=== PATIENT | female | born 1945 | race Caucasian/White ===

== ENCOUNTER 2017-10-09 16:48 | Emergency (ER) | payer OTHER ==
[~2017-10-09] VITALS: Ht 160 cm; Wt 66.2 kg
[~2017-10-09 16:48] MED LIST: AMITRIPTYLINE; ASA5UEC; FLEXERIL PO; GLUCOPHAGE500 MG; IBUPROFEN 800800 M1; IMITREX 25 MG T25 MG; LEVOTHROID; LISINOPRIL20 MG; NORCO 5-325 TA1 EACH PO
[2017-10-09] MEDS ORDERED: ZOFRAN ODT4 MG PO (18:37)
[2017-10-09] MEDS ORDERED: VALIUM5 MG PO (18:37)
[2017-10-09] MEDS ORDERED: NORCO 5-325 TA1 EACH PO (18:37)
[2017-10-09 19:26] VITALS: BP 145/70
== END 2017-10-09 19:13 | disposition home or self-care (01) ==
LOC: ER 16:48
DX: S39.011A Strain of muscle, fascia and tendon of abdomen, initial encounter (principal); I10 Essential (primary) hypertension; E78.00 Pure hypercholesterolemia, unspecified; G43.909 Migraine, unspecified, not intractable, without status migrainosus; E07.9 Disorder of thyroid, unspecified; X58.XXXA Exposure to other specified factors, initial encounter; Y93.89 Activity, other specified; Y92.89 Other specified places as the place of occurrence of the external cause; Y99.8 Other external cause status

== ENCOUNTER 2018-01-15 21:00 | Emergency (ER) | payer OTHER ==
[~2018-01-15] VITALS: Ht 160 cm; Wt 63.5 kg
--- NOTE | ~2018-01-15 | EKG ---
[address] [address] ELECTROCARDIOGRAM REPORT Name: PAPITO IBARRA Room #: [facility]#: [id number] Admission: 01/15/18 Attend Phys: Discharge: 01/15/18 Date of : 49 Report #: [id number] THIS REPORT FOR: //name// 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 : 1945 Requested By: Eloise Belcher Order Number: [id number] MD: James Ceron Measurements Intervals [place] Rate: 72 P: 61 [place]: 217 QRS: -17 QRSD: 107 T: 7 QT: 450 QTc: 493 Interpretive Statements Sinus rhythm Borderline prolonged [place] interval Inferior infarct, old Probable anteroseptal infarct, old Compared to ECG 09/22/2010 06:38:45 Myocardial infarct finding now present Sinus tachycardia no longer present T-wave abnormality no longer present Electronically Signed On 01-16-2018 21:32:47 CDT by James Ceron [email or web address] <ELECTRONICALLY SIGNED> By: James Ceron MD 01/16/182131 49 49 James Ceron MD /EPI
[~2018-01-15 21:00] MED LIST changes: +VALIUM5 MG PO; +ZOFRAN ODT4 MG PO
[2018-01-15] MEDS ORDERED: NEURONTIN250 MG/5 M PO (21:36)
[2018-01-15 22:16] LABS: URINE BILIRUBIN NEGATIVE (Negative); URINE BLOOD NEGATIVE (Negative); URINE CLARITY CLEAR; URINE COLOR YELLOW; URINE KETONES 3+ (Negative); URINE LEUKOCYTES NEGATIVE (Negative); URINE NITRITE NEGATIVE (Negative); URINE PROTEIN (DIPSTICK) NEGATIVE (Negative); URINE UROBILINOGEN 0.2 E.U./dl (0.2-1.0)
[2018-01-15 22:24] LABS: URINE GLUCOSE-RANDOM* 1+ (Negative)
[2018-01-15 22:37] LABS: HEMATOCRIT 38.7 % (37.0-47.0); HEMOGLOBIN 13.2 gm/dL (12.0-15.0); MCH 32.3 pg (26.0-34.0); MCHC 34.2 g/dL (28.0-37.0); MCV 94.4 fL (80.0-100.0); PLATELET COUNT 241 thou/uL (150-400); WBC 9.7 thou/uL (4.0-11.0)
[2018-01-15 22:46] LABS: ANION GAP 8 mmol/L (7-16); BUN 10 mg/dL (7-18); CALCIUM 9.6 mg/dL (8.5-10.1); CHLORIDE 96 mmol/L (98-107); CO2 24 mmol/L (21-32); CREATININE 0.7 mg/dL (0.6-1.0); GLUCOSE 126 mg/dL (74-106); POTASSIUM 3.4 mmol/L (3.5-5.1); SODIUM 128 mmol/L (136-145)
[2018-01-15 22:54] LABS: ALBUMIN 3.4 g/dL (3.4-5.0); DIRECT BILIRUBIN 0.1 mg/dL (<0.1-0.3); LIPASE 104 U/L (73-393); SGOT 20 U/L (15-37); SGPT 26 U/L (30-65); TOTAL BILIRUBIN 0.4 mg/dL (<0.1-1.0); TOTAL PROTEIN 6.7 g/dL (6.4-8.2); TROPONIN-I < 0.04 ng/mL (<0.06)
[2018-01-15 22:56] LABS: ABSOLUTE NEUTROPHILS 7.5 thou/uL (1.4-8.2)
[2018-01-15 22:57] LABS: ANISOCYTOSIS 1+; POLYCHROMASIA OCCASIONAL
[2018-01-15] MEDS ORDERED: PHENERGAN 25 MG25 M1 PO (23:10)
[2018-01-15] MEDS ORDERED: PROMS25 WY RECTAL (23:10)
[2018-01-15] MEDS ORDERED: ZOFRAN ODT4 MG PO (23:10)
[2018-01-15 23:23] VITALS: BP 124/68
[2018-01-16] MEDS ORDERED: AMBIEN 5 MG TABL5 M1 PO (23:18)
[2018-01-16] MEDS ORDERED: NORVASC2.5 MG PO (23:19)
[2018-01-16] MEDS ORDERED: HYDROCODONE-AP1 EAC6 PO ×2 (23:21→23:22)
[2018-01-16] MEDS ORDERED: NEURONTIN600 MG PO (23:25)
[2018-01-16] MEDS ORDERED: TOPROL XL25 MG PO (23:28)
[2018-01-16] MEDS ORDERED: COMPAZINE10 MG PO (23:29)
[2018-01-16] MEDS ORDERED: NABUMETONE 750750 M1 PO (23:30)
[2018-01-16] MEDS ORDERED: ATORVASTATIN CA40 MG PO (23:30)
[2018-01-16] MEDS ORDERED: HYDROCHLOROTHIA25 M2 PO (23:31)
== END 2018-01-15 23:24 | disposition home or self-care (01) ==
LOC: ER 21:00
PROVIDERS: Emergency Medicine
DX: R19.7 Diarrhea, unspecified (principal); R11.2 Nausea with vomiting, unspecified; I10 Essential (primary) hypertension; E78.00 Pure hypercholesterolemia, unspecified; G43.909 Migraine, unspecified, not intractable, without status migrainosus; E07.9 Disorder of thyroid, unspecified

== ENCOUNTER 2018-01-16 19:06 | Inpatient (IN) | payer OTHER ==
[~2018-01-16] VITALS: Ht 160 cm; Wt 66.6 kg
[~2018-01-16 19:06] MED LIST changes: +NEURONTIN250 MG/5 M PO; +PHENERGAN 25 MG25 M1 PO; +PROMS25 WY RECTAL
[2018-01-16 19:26] VITALS: BP 149/86
[2018-01-16 19:52] LABS: ABSOLUTE NEUTROPHILS 6.8 thou/uL (1.4-8.2); BASOPHILS 0.5 % (0.0-2.0); EOSINOPHILS 0.3 % (0.0-3.0); HEMATOCRIT 38.2 % (37.0-47.0); HEMOGLOBIN 13.3 gm/dL (12.0-15.0); LYMPHOCYTES 18.4 % (24.0-44.0); MCH 32.1 pg (26.0-34.0); MCHC 34.9 g/dL (28.0-37.0); MONOCYTES 7.2 % (1.0-8.0); PLATELET COUNT 260 thou/uL (150-400); POLYS 73.6 % (36.0-66.0); RBC 4.15 mil/uL (4.20-5.00); RDW 16.1 % (10.5-14.5); WBC 9.3 thou/uL (4.0-11.0)
[2018-01-16 19:55] LABS: CALCIUM 9.2 mg/dL (8.5-10.1); CREATININE 0.6 mg/dL (0.6-1.0)
[2018-01-16 19:56] LABS: POTASSIUM 2.6 mmol/L (3.5-5.1)
[2018-01-16 20:01] LABS: ALBUMIN 3.6 g/dL (3.4-5.0); DIRECT BILIRUBIN 0.1 mg/dL (<0.1-0.3); TOTAL BILIRUBIN 0.4 mg/dL (<0.1-1.0); TOTAL PROTEIN 7.1 g/dL (6.4-8.2)
[2018-01-16 22:05] VITALS: BP 168/84
[2018-01-16 22:08] LABS: URINE BILIRUBIN NEGATIVE (Negative); URINE BLOOD NEGATIVE (Negative); URINE CLARITY CLEAR; URINE COLOR YELLOW; URINE GLUCOSE-RANDOM* NEGATIVE (Negative); URINE KETONES 1+ (Negative); URINE LEUKOCYTES TRACE (Negative); URINE NITRITE NEGATIVE (Negative); URINE UROBILINOGEN 0.2 E.U./dl (0.2-1.0)
[2018-01-16 22:30] LABS: SSA (PROTEIN CONFIRMATORY) NEGATIVE (Negative); URINE PROTEIN (DIPSTICK) NEGATIVE (Negative)
[2018-01-16 23:06] VITALS: BP 151/92
[2018-01-16] MEDS ORDERED: AMBIEN 5 MG TABL5 M1 PO (23:18)
[2018-01-16] MEDS ORDERED: NORVASC2.5 MG PO (23:19)
[2018-01-16] MEDS ORDERED: HYDROCODONE-AP1 EAC6 PO ×2 (23:21→23:22)
[2018-01-16] MEDS ORDERED: NEURONTIN600 MG PO (23:25)
[2018-01-16] MEDS ORDERED: TOPROL XL25 MG PO (23:28)
[2018-01-16] MEDS ORDERED: COMPAZINE10 MG PO (23:29)
[2018-01-16] MEDS ORDERED: ATORVASTATIN CA40 MG PO (23:30)
[2018-01-16] MEDS ORDERED: NABUMETONE 750750 M1 PO (23:30)
[2018-01-16] MEDS ORDERED: HYDROCHLOROTHIA25 M2 PO (23:31)
[2018-01-17 04:10] VITALS: BP 118/69
[2018-01-17 05:33] LABS: CALCIUM 8.4 mg/dL (8.5-10.1); CREATININE 0.7 mg/dL (0.6-1.0)
[2018-01-17 05:45] LABS: POTASSIUM 3.8 mmol/L (3.5-5.1)
[2018-01-17 07:29] VITALS: BP 136/76
[2018-01-17 15:48] VITALS: BP 126/82
[2018-01-17 20:17] VITALS: BP 153/101
[2018-01-18 03:53] VITALS: BP 118/69
[2018-01-18 08:34] VITALS: BP 121/72
[2018-01-18 15:48] VITALS: BP 137/82
[2018-01-18 20:17] VITALS: BP 154/86
[2018-01-18 21:14] VITALS: BP 154/94
[2018-01-19 08:04] VITALS: BP 149/82
[2018-01-19 12:30] VITALS: BP 149/82
[2018-01-19] MEDS ORDERED: FLAGYL500 MG PO (14:08)
[2018-01-19] MEDS ORDERED: PROBIOTIC1 EAC2 PO (14:08)
== END 2018-01-19 14:28 | disposition home or self-care (01) | DRG 392 ==
LOC: ER 19:06 → EROBS 21:49 → 4W 21:49 → SICU 01-18 21:18 → ENTRNSPT 01-19 14:17 → SICU 01-19 14:28 → EDTRNSPTSTS 01-19 14:40
PROVIDERS: Emergency Medicine; Nurse Practitioner Acute Care
DX: A08.39 Other viral enteritis (principal); E87.1 Hypo-osmolality and hyponatremia; I10 Essential (primary) hypertension; E78.00 Pure hypercholesterolemia, unspecified; E11.9 Type 2 diabetes mellitus without complications; E03.9 Hypothyroidism, unspecified; G43.909 Migraine, unspecified, not intractable, without status migrainosus; E87.6 Hypokalemia; Z79.84 Long term (current) use of oral hypoglycemic drugs; Z79.899 Other long term (current) drug therapy; Z79.82 Long term (current) use of aspirin; Z98.891 History of uterine scar from previous surgery
CPT/HCPCS: 10045; 15001

== ENCOUNTER 2018-02-02 10:25 | Inpatient (IN) | payer OTHER ==
[~2018-02-02] VITALS: Ht 160 cm; Wt 65.8 kg
--- NOTE | ~2018-02-02 | PATH ---
[facility] [place] [address] [place] [address] PATHOLOGY RPT PROCEDURE Name: RAMONITA IBARRA Zev Room #: 458-P DIS IN M.R.#: [id number] Admission: 02/02/18 Date of : 49 Discharge: 02/04/18 Report #: [id number] Path Case #: [id number] [facility] Accession Number: [id number] . 01 Material submitted: . PART A: DUODENUM BIOPSY PART B: GASTRITIS BIOPSY . 01 Clinical history: . Nausea and vomiting, duodenitis, gastritis. . 02 Diagnosis: A. Duodenum, "duodenum rule out sprue": - Non-specific mild chronic inflammation. - There is no evidence of acute cryptitis, granulomas, adenomatous change, sprue-like changes or malignancy. . B. Gastric biopsy, "gastritis rule out H. pylori": - Mild chronic reactive gastropathy. - There is no evidence of acute cryptitis, granulomas, adenomatous change, or malignancy. - The immunoperoxidase stain for Helicobacter pylori is negative. (MARLYS:; 02/05/18) QRQ/02/05/2018 . 02 Electronically signed: . Oracio Dupree MD, Pathologist NPI- [id number] . 01 Gross description: . A. Received in formalin labeled "Ramonita Ibarra, duodenum biopsy rule out sprue" is a 0.5 x 0.1 x 0.8 0.5 x 0.3 x 0.1 cm aggregate of jean-brown soft tissue. The specimen is submitted in cassette A1. . B. Received in formalin labeled "Ramonita Ibarra, gastritis rule out H. pylori biopsy" is a 0.6 x 0.3 x 0.1 cm aggregate of jean-brown soft tissue. The specimen is submitted in cassette B1. ([facility]; 02/04/2018) SYC/SYC . 02 Pathologist provided ICD-10: K29.80, K31.9 . 02 CPT . 259992, 169973, F75843 Performed at: [address] [facility] [address], [place] [id number] [place] [address] PATHOLOGY RPT PROCEDURE Name: RAMONITA IBARRA Room #: 458-P DIS IN M.R.#: [id number] Admission: 02/02/18 Date of : 49 Discharge: 02/04/18 Report #: [id number] Path Case #: [id number] MD Bradley Laura MD Phone: [phone] Performed at: [address] [id number] MD Mecca Douglas MD Phone: [phone]
[~2018-02-02 10:25] MED LIST changes: +AMBIEN 5 MG TABL5 M1 PO; +ATORVASTATIN CA40 MG PO; +COMPAZINE10 MG PO; +FLAGYL500 MG PO; +HYDROCHLOROTHIA25 M2 PO; +HYDROCODONE-AP1 EAC6 PO; +NABUMETONE 750750 M1 PO; +NEURONTIN600 MG PO; +NORVASC2.5 MG PO; +PROBIOTIC1 EAC2 PO; +TOPROL XL25 MG PO
[2018-02-02 10:36] VITALS: BP 130/75
[2018-02-02 11:23] LABS: ABSOLUTE NEUTROPHILS 6.8 thou/uL (1.4-8.2); EOSINOPHILS 0.2 % (0.0-3.0); HEMATOCRIT 36.6 % (37.0-47.0); HEMOGLOBIN 13.6 gm/dL (12.0-15.0); LYMPHOCYTES 15.5 % (24.0-44.0); MCH 33.6 pg (26.0-34.0); MCHC 37.3 g/dL (28.0-37.0); MCV 90.1 fL (80.0-100.0); MONOCYTES 7.1 % (1.0-8.0); PLATELET COUNT 315 thou/uL (150-400); POLYS 76.2 % (36.0-66.0); RBC 4.06 mil/uL (4.20-5.00)
[2018-02-02 11:31] LABS: CALCIUM 9.4 mg/dL (8.5-10.1); CREATININE 0.7 mg/dL (0.6-1.0); POTASSIUM 3.6 mmol/L (3.5-5.1)
[2018-02-02 11:36] LABS: ALBUMIN 3.5 g/dL (3.4-5.0); DIRECT BILIRUBIN 0.1 mg/dL (<0.1-0.3); TOTAL BILIRUBIN 0.6 mg/dL (<0.1-1.0)
[2018-02-02] MEDS ORDERED: PHENERGAN 25 MG25 M1 PO (13:46)
[2018-02-02] MEDS ORDERED: ZOFRAN ODT4 MG PO (13:46)
[2018-02-02] MEDS ORDERED: ATIVAN0.5 MG PO (13:50)
[2018-02-02 14:02] LABS: URINE BILIRUBIN NEGATIVE (Negative); URINE BLOOD NEGATIVE (Negative); URINE CLARITY CLEAR; URINE COLOR YELLOW; URINE GLUCOSE-RANDOM* NEGATIVE (Negative); URINE KETONES TRACE (Negative); URINE LEUKOCYTES NEGATIVE (Negative); URINE NITRITE NEGATIVE (Negative); URINE PROTEIN (DIPSTICK) NEGATIVE (Negative); URINE SPECIFIC GRAVITY <= 1.005 (1.005-1.035); URINE UROBILINOGEN 0.2 E.U./dl (0.2-1.0)
[2018-02-02 15:42] LABS: ALBUMIN 3.4 g/dL (3.4-5.0); TOTAL PROTEIN 7.2 g/dL (6.4-8.2)
[2018-02-02 16:16] LABS: TSH 2.2 uIU/mL (0.358-3.740)
[2018-02-02 17:41] VITALS: BP 140/83
[2018-02-02 18:28] VITALS: BP 140/83
[2018-02-02 18:55] VITALS: BP 147/90
[2018-02-03 03:31] VITALS: BP 118/66
[2018-02-03 05:29] LABS: HEMATOCRIT 35.9 % (37.0-47.0); HEMOGLOBIN 12.4 gm/dL (12.0-15.0); MCH 31.9 pg (26.0-34.0); MCHC 34.6 g/dL (28.0-37.0); MCV 92.3 fL (80.0-100.0); RBC 3.89 mil/uL (4.20-5.00); RDW 14.9 % (10.5-14.5)
[2018-02-03 05:39] LABS: CALCIUM 8.6 mg/dL (8.5-10.1); CREATININE 0.6 mg/dL (0.6-1.0); MAGNESIUM 2.3 mg/dL (1.8-2.4); POTASSIUM 3.8 mmol/L (3.5-5.1)
[2018-02-03 07:20] VITALS: BP 143/86
[2018-02-03 15:08] VITALS: BP 159/98
[2018-02-03 19:50] VITALS: BP 149/78
[2018-02-04 03:36] VITALS: BP 127/77
[2018-02-04 05:47] LABS: HEMATOCRIT 34.3 % (37.0-47.0); HEMOGLOBIN 12.4 gm/dL (12.0-15.0); MCH 33.2 pg (26.0-34.0); MCHC 36.3 g/dL (28.0-37.0); MCV 91.7 fL (80.0-100.0); RBC 3.74 mil/uL (4.20-5.00); RDW 14.9 % (10.5-14.5); WBC 8.1 thou/uL (4.0-11.0)
[2018-02-04 06:14] LABS: CALCIUM 8.3 mg/dL (8.5-10.1); CREATININE 0.6 mg/dL (0.6-1.0); MAGNESIUM 1.9 mg/dL (1.8-2.4); POTASSIUM 3.7 mmol/L (3.5-5.1)
[2018-02-04 07:55] VITALS: BP 151/89
[2018-02-04] MEDS ORDERED: PROTONIX40 M1 PO (09:54)
[2018-02-04 15:40] VITALS: BP 151/89
[2018-02-04 16:53] VITALS: BP 148/90
== END 2018-02-04 18:15 | disposition home or self-care (01) | DRG 378 ==
LOC: ER 10:25 → EROBS 14:22 → 4W 14:22
PROVIDERS: Emergency Medicine; Internal Medicine
PROC: 0DB98ZX Excision of Duodenum, Via Natural or Artificial Opening Endoscopic, Diagnostic (ICD-10-PCS; principal; 2018-02-04)
PROC: 0DB68ZX Excision of Stomach, Via Natural or Artificial Opening Endoscopic, Diagnostic (ICD-10-PCS; principal; 2018-02-04)
DX: K92.1 Melena (principal); E87.1 Hypo-osmolality and hyponatremia; K29.91 Gastroduodenitis, unspecified, with bleeding; K52.9 Noninfective gastroenteritis and colitis, unspecified; I10 Essential (primary) hypertension; E78.00 Pure hypercholesterolemia, unspecified; G43.909 Migraine, unspecified, not intractable, without status migrainosus; E11.9 Type 2 diabetes mellitus without complications; E03.9 Hypothyroidism, unspecified; E78.5 Hyperlipidemia, unspecified; Z79.899 Other long term (current) drug therapy
CPT/HCPCS: 10045; 62110; 62900; 70005

== ENCOUNTER 2020-08-11 03:04 | Emergency (ER) | payer OTHER ==
[~2020-08-11] VITALS: Ht 157.5 cm; Wt 63.5 kg
[~2020-08-11 03:04] MED LIST changes: +ATIVAN0.5 MG PO; +PROTONIX40 M1 PO
[2020-08-11] MEDS ORDERED: NABUMETONE 750750 M1 PO (03:14)
[2020-08-11] MEDS ORDERED: METFORMIN HCL500 MG PO (03:14)
[2020-08-11] MEDS ORDERED: ATORVASTATIN CA80 MG PO (03:17)
[2020-08-11] MEDS ORDERED: LISINOPRIL40 MG PO (03:17)
[2020-08-11] MEDS ORDERED: MELATONIN5 MG SUBLING (03:18)
[2020-08-11 04:17] LABS: ABSOLUTE NEUTROPHILS 5.8 thou/uL (1.4-8.2); BASOPHILS 0.8 % (0.0-2.0); EOSINOPHILS 1.7 % (0.0-3.0); HEMATOCRIT 36.4 % (37.0-47.0); HEMOGLOBIN 12.3 gm/dL (12.0-15.0); LYMPHOCYTES 16.3 % (24.0-44.0); MCH 30.9 pg (26.0-34.0); MCHC 33.6 g/dL (28.0-37.0); MCV 91.8 fL (80.0-100.0); MONOCYTES 8.3 % (1.0-8.0); PLATELET COUNT 300 thou/uL (150-400); POLYS 72.9 % (36.0-66.0); RBC 3.97 mil/uL (4.20-5.00); RDW 15.9 % (10.5-14.5); WBC 7.9 thou/uL (4.0-11.0)
[2020-08-11 04:34] LABS: ALBUMIN 3.8 g/dL (3.4-5.0); ANION GAP 12 mmol/L (7-16); BUN 21 mg/dL (7-18); CHLORIDE 95 mmol/L (98-107); CO2 23 mmol/L (21-32); CREATININE 1.1 mg/dL (0.6-1.0); GLUCOSE 152 mg/dL (74-106); LIPASE 192 U/L (73-393); POTASSIUM 3.7 mmol/L (3.5-5.1); SGOT 20 U/L (15-37); SGPT 25 U/L (14-59); SODIUM 130 mmol/L (136-145); TOTAL BILIRUBIN 0.4 mg/dL (0.2-1.0); TOTAL PROTEIN 7.2 g/dL (6.4-8.2); TROPONIN-I <0.06 ng/mL (<0.06)
[2020-08-11 04:40] LABS: CALCIUM 9.4 mg/dL (8.5-10.1)
[2020-08-11 05:21] VITALS: BP 163/73
--- NOTE | 2020-08-13 07:25 | EKG ---
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1945 Requested By: Joaquin Cantu Order Number: [id number] MD: Vinny Fiore Measurements Intervals [place] Rate: 73 P: 43 [place]: 194 QRS: 22 QRSD: 85 T: 37 QT: 397 QTc: 438 Interpretive Statements Sinus rhythm Anteroseptal infarct, age indeterminate Baseline wander in lead(s) V1,V6 Compared to ECG 01/15/2018 21:50:27 No significant changes Electronically Signed On 08-13-2020 7:25:39 MANAGER EDUCATION by Vinny Fiore [email or web address] <ELECTRONICALLY SIGNED> By: Vinny Fiore MD, [facility] 08/13/20 0725 1 1 Vinny Fiore MD, [facility] /EPI
== END 2020-08-11 05:30 | disposition home or self-care (01) ==
LOC: ER 03:04
PROVIDERS: Emergency Medicine
DX: R07.89 Other chest pain (principal); I10 Essential (primary) hypertension; E78.5 Hyperlipidemia, unspecified; G43.909 Migraine, unspecified, not intractable, without status migrainosus; E11.9 Type 2 diabetes mellitus without complications; Z79.899 Other long term (current) drug therapy

== ENCOUNTER 2021-06-08 13:36 | Emergency (ER) | payer OTHER ==
[~2021-06-08] VITALS: Ht 157.5 cm; Wt 63.5 kg
[~2021-06-08 13:36] MED LIST changes: +ATORVASTATIN CA80 MG PO; +LISINOPRIL40 MG PO; +MELATONIN5 MG SUBLING; +METFORMIN HCL500 MG PO
[2021-06-08 15:18] LABS: ABSOLUTE NEUTROPHILS 6.2 thou/uL (1.4-8.2); BASOPHILS 1.5 % (0.0-2.0); EOSINOPHILS 0.5 % (0.0-3.0); HEMATOCRIT 38.9 % (37.0-47.0); HEMOGLOBIN 12.8 gm/dL (12.0-15.0); LYMPHOCYTES 17.1 % (24.0-44.0); MCH 29.7 pg (26.0-34.0); MCV 90.2 fL (80.0-100.0); MONOCYTES 7.1 % (1.0-8.0); PLATELET COUNT 292 thou/uL (150-400); POLYS 73.8 % (36.0-66.0); RBC 4.31 mil/uL (4.20-5.00); RDW 14.8 % (10.5-14.5); WBC 8.4 thou/uL (4.0-11.0)
[2021-06-08 15:26] LABS: ANION GAP 13 mmol/L (7-16); BUN 12 mg/dL (7-18); CALCIUM 9.5 mg/dL (8.5-10.1); CHLORIDE 96 mmol/L (98-107); CO2 25 mmol/L (21-32); CREATININE 0.9 mg/dL (0.6-1.0); GLUCOSE 109 mg/dL (74-106); SODIUM 134 mmol/L (136-145)
[2021-06-08 15:30] LABS: POTASSIUM 4.1 mmol/L (3.5-5.1)
[2021-06-08] MEDS ORDERED: METFORMIN HCL500 M3 PO (16:21)
[2021-06-08] MEDS ORDERED: LEVO-T50 MCG PO (16:21)
[2021-06-08] MEDS ORDERED: NAPROSYN500 MG PO (17:04)
[2021-06-08] MEDS ORDERED: APAP W/CODEINE1 TA2 PO (17:04)
[2021-06-08 17:27] VITALS: BP 133/62
--- NOTE | 2021-06-09 12:27 | EKG ---
[place] [address] [address] [address] 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1945 Requested By: Christopher Reyes Order Number: [id number] MD: Vinny Fiore Measurements Intervals [place] Rate: 78 P: 47 [place]: 191 QRS: 0 QRSD: 87 T: 37 QT: 385 QTc: 439 Interpretive Statements SINUS RHYTHM No significant abnormality Compared to ECG 08/11/2020 03:12:05 Septal Q waves are no longer present Electronically Signed On 06-09-2021 12:27:44 GEOTECHNICAL OPERATING ENGINEER by Vinny Fiore [email or web address] <ELECTRONICALLY SIGNED> By: Vinny Fiore MD, [facility] 06/09/21 1227 1343 1343 Vinny Fiore MD, FACC /EPI
== END 2021-06-08 17:31 | disposition home or self-care (01) ==
LOC: ER 13:36
PROVIDERS: Emergency Medicine
DX: R07.89 Other chest pain (principal); I10 Essential (primary) hypertension; E78.00 Pure hypercholesterolemia, unspecified; G43.909 Migraine, unspecified, not intractable, without status migrainosus; E11.9 Type 2 diabetes mellitus without complications; Z79.899 Other long term (current) drug therapy

== ENCOUNTER 2021-08-30 23:23 | Emergency (ER) | payer OTHER ==
[~2021-08-30] VITALS: Ht 157.5 cm; Wt 60.3 kg
[~2021-08-30 23:23] MED LIST changes: +APAP W/CODEINE1 TA2 PO; +LEVO-T50 MCG PO; +METFORMIN HCL500 M3 PO; +NAPROSYN500 MG PO
[2021-08-30] MEDS ORDERED: IMITREX 25 MG T25 M1 PO (23:52)
[2021-08-30] MEDS ORDERED: CODEINE PO (23:54)
[2021-08-30] MEDS ORDERED: HYDROCODONE PO (23:55)
[2021-08-31] MEDS ORDERED: ZOFRAN ODT4 MG PO (02:34)
[2021-08-31 02:58] VITALS: BP 129/71
--- NOTE | 2021-08-31 11:29 | EKG ---
[place] [address] [address] [facility] [place] [address] ELECTROCARDIOGRAM REPORT Name: PAPITO IBARRA [id number] Admission: 08/30/21 Attend Phys: Discharge: 08/31/21 Date of : 49 Report #: [id number] [facility] ED Test Date: 2021-08-30 Test Time: 23:37:58 Pat Name: PAPITO IBRARA Department: Room: Gender: F Clinic Clerk: [email or web address] : 1945 Requested By: Geovanni Hay Order Number: [id number] MD: Ham Crenshaw Measurements Intervals [place] Rate: 69 P: 47 [place]: 197 QRS: -7 QRSD: 99 T: -7 QT: 403 QTc: 432 Interpretive Statements Sinus rhythm Probable left atrial enlargement Borderline T abnormalities, inferior leads Compared to ECG 06/08/2021 13:43:34 T-wave abnormality now present Electronically Signed On 08-31-2021 11:28:50 HIGH SCHOOL COACH by Ham Crenshaw [email or web address] <ELECTRONICALLY SIGNED> By: Ham Crenshaw MD 08/31/21 1128 2337 2337 MD VICTOR MANUEL Spencer
== END 2021-08-31 03:00 | disposition home or self-care (01) ==
LOC: ER 23:23
DX: M54.59 Other low back pain (principal); I10 Essential (primary) hypertension; E78.00 Pure hypercholesterolemia, unspecified; E11.9 Type 2 diabetes mellitus without complications; Z79.899 Other long term (current) drug therapy